=== PATIENT | male | born 1985 | race Caucasian/White ===

== ENCOUNTER 2022-02-21 03:50 | Day surgery (SDC) | payer OTHER ==
[2022-02-16 15:04] VITALS: BMI 27.8
[2022-02-21] MEDS ORDERED: MIDAZOLAM HCL 2 MG/2 ML SINGLE DOSE VIAL ONE ×2 (08:02)
[2022-02-21] MEDS ORDERED: PROPOFOL 20 ML ONE ×2 (08:02)
[2022-02-21 09:15] VITALS: BP 115/71; PULSE 60; TEMP 98.2
== END 2022-02-21 09:47 | disposition home or self-care (01) ==
LOC: JASU-SURG 03:50
PROVIDERS: ATTEND Urology
PROC: 0TF3XZZ Fragmentation in Right Kidney Pelvis, External Approach (ICD-10-PCS; principal; 2022-02-21 08:00)
DX: N20.0 Calculus of kidney (principal)

== ENCOUNTER 2022-12-12 05:07 | Day surgery (SDC) | payer OTHER ==
[2022-12-07 10:05] VITALS: BMI 27.1
[2022-12-12] MEDS ORDERED: MIDAZOLAM HCL 2 MG/2 ML SINGLE DOSE VIAL ONE (07:09)
[2022-12-12] MEDS ORDERED: PROPOFOL 20 ML ONE (07:09)
[2022-12-12 08:38] VITALS: RESP 18; TEMP 97.7
[2022-12-12 13:31] VITALS: BP 116/70; PULSE 60
== END 2022-12-12 10:20 | disposition home or self-care (01) ==
LOC: JASU-SURG 05:07
PROVIDERS: ATTEND Urology
PROC: 0TF4XZZ Fragmentation in Left Kidney Pelvis, External Approach (ICD-10-PCS; principal; 2022-12-12 08:00)
DX: N20.0 Calculus of kidney (principal)